=== PATIENT | female | born 1955 | race Caucasian/White ===

== ENCOUNTER 2019-08-31 15:52 | Emergency (ER) | payer OTHER ==
[2019-08-31 16:01] VITALS: TEMP 99.4; BMI 27.8
[2019-08-31 17:35] LABS: BASO % 0.4 % (0-2.0); EOS % 0.9 % (0-4.5); HEMATOCRIT 43.7 % (32.4-45.2); HEMOGLOBIN 14.5 GM/dL (10.7-15.3); MCHC 33.1 g/dl (32.0-36.0); MEAN CELL VOLUME 93.5 fl (80-96); MEAN PLT VOLUME 8.2 fl (7.5-11.1); NEUT % 61.7 % (42.8-82.8); PLATELET COUNT 266 K/MM3 (134-434); RBC 4.67 M/mm3 (3.60-5.2); WHITE BLOOD COUNT 7.8 K/mm3 (4.0-10.0)
--- NOTE | 2019-08-31 17:46 | PDOC ---
History of Present Illness - General Chief Complaint: Lightheaded Stated Complaint: DIZZYNESS / HYPERTENSION Time Seen by Provider: 08/31/19 16:49 History Source: Patient Exam Limitations: No Limitations - History of Present Illness Initial Comments: 08/31/19 17:44 63 yo female pmh HTN and DM presents to the ED after dizzy spell and fall. Pt states while trying to clean her ceiling light, she stood on top of a seat 2 feet off the ground, became suddenly dizzy and fell without hitting her head or LOC. Pt fell onto her left side denies any pain or difficulty ambulating, no bruises. Pt states she was able to get up off the ground on her own and the dizziness subsided after 20 min. Denies CP, palpitations or SOB prior to or after the fall, denies TAM, changes in vision, neck pain/stiffness, confusion, changes in strength or sensation to 1 side of her body. Pt admits to recent addition of sartan medication within the last 1 week Past History - Past Medical History Allergies/Adverse Reactions: Allergies Allergy/AdvReac Type Severity Reaction Status Date / Time No Known Allergies Allergy Verified 08/31/19 16:01 Home Medications: Ambulatory Orders Methylprednisolone [Medrol Dose Thomas] 4 mg PO ASDIR 6 Days #21 tablet MDD 24mg Meclizine HCl 25 mg PO TID #21 tablet 08/31/19 Meclizine HCl [Antivert -] 25 mg PO TID #21 tablet 08/31/19 Cancer: Yes (breast) COPD: No Diabetes: Yes HTN: Yes - Psycho Social/Smoking Cessation Hx Smoking History: Never smoked Hx Alcohol Use: No Drug/Substance Use Hx: No Review of Systems - Review of Systems Constitutional: No: Chills, Fever HEENTM: No: Blurred Vision, Double Vision, Ear Pain, Hearing Loss Respiratory: No: Shortness of Breath Cardiac (ROS): No: Chest Pain ABD/GI: No: Constipated, Diarrhea, Nausea, Vomiting : No: Burning, Dysuria, Frequency, Flank Pain Neurological: Yes: Dizziness (resolved). No: Headache, Numbness, Paresthesia, Weakness, Unsteady Gait, Ataxia *Physical Exam - Vital Signs Last Vital Signs Temp Pulse Resp BP Pulse Ox 99.4 F 80 16 148/79 99 08/31/19 15:59 08/31/19 15:59 08/31/19 15:59 08/31/19 15:59 08/31/19 15:59 - Physical Exam General Appearance: Yes: Nourished, Appropriately Dressed. No: Apparent Distress HEENT: positive: EOMI, KAY, Normal Voice, TMs Normal, Pharynx Normal, Hearing Grossly Normal. negative: Photophobia, TM Erythema Neck: positive: Supple. negative: Carotid bruit Respiratory/Chest: positive: Lungs Clear, Normal Breath Sounds. negative: Respiratory Distress, Crackles, Rales, Rhonchi, Stridor, Wheezing Cardiovascular: positive: Regular Rhythm, Regular Rate, S1, S2. negative: Edema , JVD, Murmur Vascular Pulses: Dorsalis-Pedis (R): 4+, Doralis-Pedis (L): 4+ Gastrointestinal/Abdominal: positive: Flat, Soft. negative: Pulsatile Mass, Protuberent, Distended, Guarding, Rebound, Tenderness Musculoskeletal: negative: CVA Tenderness Extremity: positive: Normal Capillary Refill, Normal Inspection, Normal Range of Motion Integumentary: positive: Normal Color, Dry, Warm Neurologic: positive: wirer maintenance II-XII NML intact, Fully Oriented, Alert, Normal Mood/ Affect, Normal Response, Motor Strength 5/5. negative: Facial Droop, Numbness, Sensory Deficit, Finger to Nose (normal), Confused, Disoriented ED Treatment Course - LABORATORY CBC & Chemistry Diagram: 08/31/19 17:20 08/31/19 17:20 - ADDITIONAL ORDERS Additional order review: 08/31/19 17:20 RBC 4.67 MCV 93.5 MCHC 33.1 RDW 14.0 MPV 8.2 Neutrophils % 61.7 Lymphocytes % 29.0 Monocytes % 8.0 Eosinophils % 0.9 Basophils % 0.4 Medical Decision Making - Medical Decision Making 08/31/19 19:34 63 yo female pmh HTN and DM presents to the ED after dizzy spell and fall. Pt states while trying to clean her ceiling light, she stood on top of a seat 2 feet off the ground, became suddenly dizzy and fell without hitting her head or LOC. Pt fell onto her left side denies any pain or difficulty ambulating, no bruises. Pt states she was able to get up off the ground on her own and the dizziness subsided after 20 min. Denies CP, palpitations or SOB prior to or after the fall, denies TAM, changes in vision, neck pain/stiffness, confusion, changes in strength or sensation to 1 side of her body. Pt admits to recent addition of sartan medication within the last 1 week vitals WNL EKG NSR without acute ischemic changes Labs neg for infection, anemia, metabolic ab, trops neg Head CT neg for acute stroke, it shows chronic mircovascular changes Pt had sudden dizzy spell after outstretching her arms upwards, likely vasovagal vs vertigo. No LOC, TAM or neuro changes. Head CT neg, EKG and trops neg, no CP Pt safe for DC home with PCP f/u, neuro f/u and Cardiology follow up pt ambulates without difficulty, NAD and no current medical complaints Pt agrees with and understands plan Discharge - Discharge Information Problems reviewed: Yes Clinical Impression/Diagnosis: Vertigo Condition: Good Disposition: HOME - Admission No - Follow up/Referral Referrals: Zaire Abreu MD [Primary Care Provider] - Willard Kemp MD [Staff Physician] - Bar Morrow MD [Staff Physician] - - Patient Discharge Instructions Patient Printed Discharge Instructions: DI for Vertigo Additional Instructions: Please see your Primary Doctor and make an appointment to see the Neurologist and Advertising Operations Coordinator as soon as possible. Take the medication meclizine sent to your pharmacy as prescribed. Return to the ER for new or concerning symptoms including but not limited to: headaches, loss of balance, chest pain, palpitations, fevers or inability to eat or drink. Thank you - Post Discharge Activity
--- NOTE | 2019-08-31 17:51 | PDOC ---
Attending Attestation - Resident Resident Name: LesleyDerrick - ED Attending Attestation I have performed the following: I have examined & evaluated the patient, The case was reviewed & discussed with the resident, I agree w/resident's findings & plan - HPI HPI: 08/31/19 17:49 63 YOF with h/o HTN, DM2 presenting with dizziness and subsequent fall. she had dizzy spell while cleaning lamp, fell down, no LOC or head injury able to get up from ground and walk. no cp/sob, palp dizziness episode x 20 minutes, since resolved yesterday, she had palpitations x <1 minute, also not associated with cp or sob or syncope. no prior cardiac history. started on new ARB agent by primary, Dr Kruger 4 days ago. 08/31/19 20:38 - Physicial Exam PE: 08/31/19 17:50 Agree with the resident's HPI and PE as documented in the electronic medical record. NAD, well appearing, EOMI, PERRL, nl conjunctiva, anicteric; neck supple. lungs clear, RRR, abdomen soft nontender. no rebound, guarding. Back nontender. REYNA x4, no focal neuro deficits. No peripheral edema. normal color for ethnicity , WWP. Alert, oriented to person time and place. CN II-XII grossly intact. Strength prox and distally 5/5 throughout. Sensation grossly intact to light touch. REYNA x4. No cerebellar signs, no dysmetria, bilateral finger to nose and heel to donaldson equal and symmetric. Speech clear. 08/31/19 18:57 08/31/19 20:37 - Medical Decision Making 08/31/19 20:37 Vital Signs Temp Pulse Resp BP Pulse Ox 99.4 F 75 18 155/78 100 08/31/19 15:59 08/31/19 19:41 08/31/19 19:41 08/31/19 19:41 08/31/19 19:41 ddx arrhythmia, ACS, ECD lesion, mass, CVA, vertigo, peripheral vs central vertigo, orthostatics, medication side effect labs and lytes wnl EKG unremarkable, trop neg, doubt ACS or cardiac given no cp or sob neuro intact, no focal deficits CT head with microvascular changes, no acute infarct/mass/bleed asymptomatic in the ED will trial meclizine dizziness could be related to new antihypertensive agent, started on ARB by primary several days ago this week anticipate discharge, primary and neuro followup, rx med prn for dizziness, meclizine, return precautions. stable condition for discharge Heart Score/ECG Review #1 ECG reviewed & interpreted by me at: 17:15 General ECG Interpretation: Sinus Rhythm, Normal Rate, Normal Intervals Compared to previous ECG there are: Previous ECG unavail
[2019-08-31 18:00] LABS: ALBUMIN 3.8 g/dl (3.4-5.0); BILIRUBIN,TOTAL 0.2 mg/dL (0.2-1); CALCIUM 9.2 mg/dL (8.5-10.1); CREATININE 0.6 mg/dL (0.55-1.3); POTASSIUM 4.5 mmol/L (3.5-5.1); TOT PROT 7.2 g/dl (6.4-8.2)
[2019-08-31] MEDS ORDERED: MECLIZINE HCL 25 MG TABLET (FP) PO ONE (19:34)
[2019-08-31 19:43] VITALS: BP 155/78; PULSE 75
[2019-08-31] MEDS ORDERED: MECLIZINE HCL 25 MG TABLET (FP) ONE (19:45)
--- NOTE | 2019-09-01 12:20 | EKG ---
Test Reason : Blood Pressure : / mmHG Vent. Rate : 075 BPM Atrial Rate : 075 BPM P-R Int : 154 ms QRS Dur : 084 ms QT Int : 376 ms P-R-T Axes : 065 046 059 degrees QTc Int : 419 ms NORMAL SINUS RHYTHM NORMAL ECG WHEN COMPARED WITH ECG OF 22-FEB-2003 12:57, NO SIGNIFICANT CHANGE WAS FOUND Confirmed by PRADIP MONTAÑO MD ([id number]) on 09/01/2019 12:19:54 PM Referred By: Confirmed By:PRADIP MONTAÑO MD
== END 2019-08-31 20:51 | disposition home or self-care (01) ==
LOC: JER 15:52
DX: R42 Dizziness and giddiness (principal); E11.9 Type 2 diabetes mellitus without complications; I10 Essential (primary) hypertension; Z85.3 Personal history of malignant neoplasm of breast
CPT/HCPCS: 36415; 70450-TC; 80053; 84484; 85025; 93005; 93010; 99283-25

== ENCOUNTER 2025-01-10 04:02 | Day surgery (SDC) | payer OTHER ==
[2025-01-04 15:23] VITALS: BMI 25.9
[2025-01-10 13:09] VITALS: TEMP 97.3
[2025-01-10] MEDS ORDERED: MIDAZOLAM HCL 2 MG/2 ML SINGLE DOSE VIAL ONE (13:23)
[2025-01-10 15:51] VITALS: RESP 20
[2025-01-10 15:53] VITALS: BP 114/72; PULSE 65
== END 2025-01-10 15:57 | disposition home or self-care (01) ==
LOC: JASU-SURG 04:02
PROVIDERS: ATTEND Urology
PROC: 0TF4XZZ Fragmentation in Left Kidney Pelvis, External Approach (ICD-10-PCS; principal; 2025-01-10 13:31)
DX: N20.0 Calculus of kidney (principal)